=== PATIENT | male | born 1960 | race Caucasian/White ===

== ENCOUNTER 2018-07-07 14:26 | Emergency (ER) | payer OTHER ==
[~2018-07-07] VITALS: Ht 180.3 cm; Wt 116.0 kg
[2018-07-07 14:32] VITALS: BP 141/96
[2018-07-07] MEDS ORDERED: DEXAMETHASONE 4 MG TABLET PO ONE (15:00)
[2018-07-07] MEDS ORDERED: XARELTO PO (15:10)
== END 2018-07-07 15:59 | disposition home or self-care (01) ==
LOC: ED 15:45
DX: J20.8 Acute bronchitis due to other specified organisms (principal); B34.9 Viral infection, unspecified
CPT/HCPCS: 71046; 99283